=== PATIENT | female | born 1945 | race Caucasian/White ===

== ENCOUNTER 2017-10-24 15:57 | Emergency (ER) | payer MEDICARE, OTHER ==
[~2017-10-24 15:57] MED LIST: ADLT ASA LOW81 MG OR; ALLOPURINOL300 MG PO; AMARYL2 MG PO; AMLODIPINE10 MG PO; AMOXICILLIN875 MG PO; ASPIRIN ADULT L81 M1 PO; ASPIRIN325 MG PO; AUGMENTIN875TAB OR; BACITRACIN EX; BENZONATATE200 MG PO; CELEXA20 M1 PO; CHANTIX STARTIN0.5 & PO; CIPRO500 MG PO; CIPROFLOXACN500 MG PO; CLARITIN10 M1 PO; DIFLUCAN150 MG OR; DOXYCYCL HYC100 MG PO; EFFIENT10 MG PO; FLONASE NASAL50 MCG; GABAPENTIN600 MG PO; GABAPENTIN800 MG PO; HYDROCHLOROT12.5 MG PO; LISINOPRIL20 MG OR; LISINOPRIL40 MG PO; MAXZIDE OR; METFORMIN1000 MG PO; METFORMIN500 M2 PO; METFORMIN500 MG PO; METOPROLOL TART50 MG PO; METRONIDAZOL0.75 % VA; NEOMYCIN EX; NEXIUM40 M1 PO; NICODERM C14 MG/24 H TD; POLYMYXIN B EX; PREVACID30 M1 OR; TESSALON200 MG PO; UNKNOWN PAIN MED; VOSOL2 % AU; ZETIA10 MG OR; ZETIA10 MG PO; ZOCOR80 MG OR
[2017-10-24 16:40] LABS: HEMATOCRIT 42.1 % (37.0-47.0); IMMATURE GRANULOCYTES 0.2 % (0.0-1.0); MEAN CELL VOLUME 94.8 fL CALC (80.0-100.0); MEAN CORPUSCULAR HGB 31.5 pG CALC (26.0-32.0); MEAN CORPUSCULAR HGB CONC 33.3 g/L CALC (32.0-36.0); NEUT# 6.04 thou/uL (2.00-7.15); RED BLOOD COUNT 4.44 mill/uL (4.20-5.60); RED CELL DISTRI WIDTH 13.6 % (11.5-15.5)
[2017-10-24 17:05] LABS: ALBUMIN 3.7 g/dL (3.2-5.0); ALKALINE PHOSPHATASE 73 u/l (38-126); ANION GAP 14 (6-22 (CALC)); BILIRUBIN, TOTAL 0.7 mg/dL (0.0-1.4); BUN 14 mg/dL (8-23); BUN/CREATININE RATIO 16 (12-20 (CALC)); CARBON DIOXIDE 27 mmol/l (22-30); CHLORIDE 99 mmol/l (95-108); CREATININE 0.9 mg/dL (0.5-1.0); GFR > 60 ML/MIN (>=60 (CALC)); GFR FOR AFR.AMER. > 60 ML/MIN (>=60 (CALC)); POTASSIUM 4.4 mmol/l (3.5-5.1); SGOT/AST 20 u/l (9-36); SGPT/ALT 31 u/l (11-66); SODIUM 137 mmol/l (137-146); TOTAL PROTEIN 6.6 g/dL (6.3-8.2)
[2017-10-24 17:09] LABS: URINE BILIRUBIN - DIPSTICK NEGATIVE (NEGATIVE); URINE BLOOD DIPSTICK NEGATIVE (NEGATIVE); URINE COLOR YELLOW; URINE GLUCOSE - DIPSTICK NEGATIVE (NEGATIVE); URINE KETONE NEGATIVE (NEGATIVE); URINE LEUK ESTERASE NEGATIVE (NEGATIVE); URINE NITRITE - DIPSTICK NEGATIVE (Negative); URINE PH 6.5 (4.5-8.0); URINE PROTEIN - DIPSTICK NEGATIVE (NEG-TRACE); URINE SPECIFIC GRAVITY <=1.005; URINE UROBILINOGEN - DIPSTICK 0.2 E.U./dL (0.2)
[2017-10-24 17:10] LABS: URINE CLARITY CLEAR
[2017-10-24 17:29] VITALS: BP 148/64
== END 2017-10-24 17:35 | disposition home or self-care (01) ==
LOC: ED 15:57
PROVIDERS: Emergency Medicine
DX: R20.2 Paresthesia of skin (principal); F17.210 Nicotine dependence, cigarettes, uncomplicated; Z95.5 Presence of coronary angioplasty implant and graft; Z89.511 Acquired absence of right leg below knee

== ENCOUNTER 2017-10-29 09:54 | Emergency (ER) | payer MEDICARE, OTHER ==
[~2017-10-29] VITALS: Ht 162.6 cm; Wt 98.0 kg
[2017-10-29 10:55] LABS: HEMATOCRIT 41.9 % (37.0-47.0); IMMATURE GRANULOCYTES 0.5 % (0.0-1.0); MEAN CELL VOLUME 94.8 fL CALC (80.0-100.0); MEAN CORPUSCULAR HGB 31.7 pG CALC (26.0-32.0); MEAN CORPUSCULAR HGB CONC 33.4 g/L CALC (32.0-36.0); NEUT# 5.87 thou/uL (2.00-7.15); RED BLOOD COUNT 4.42 mill/uL (4.20-5.60); RED CELL DISTRI WIDTH 13.8 % (11.5-15.5)
[2017-10-29 11:00] LABS: ALBUMIN 3.8 g/dL (3.2-5.0); ALKALINE PHOSPHATASE 78 u/l (38-126); ANION GAP 17 (6-22 (CALC)); BILIRUBIN, TOTAL 0.5 mg/dL (0.0-1.4); BUN 18 mg/dL (8-23); BUN/CREATININE RATIO 20 (12-20 (CALC)); CARBON DIOXIDE 24 mmol/l (22-30); CHLORIDE 99 mmol/l (95-108); CREATININE 0.9 mg/dL (0.5-1.0); GFR > 60 ML/MIN (>=60 (CALC)); GFR FOR AFR.AMER. > 60 ML/MIN (>=60 (CALC)); POTASSIUM 4.5 mmol/l (3.5-5.1); SGOT/AST 20 u/l (9-36); SGPT/ALT 35 u/l (11-66); SODIUM 136 mmol/l (137-146); TOTAL PROTEIN 6.7 g/dL (6.3-8.2)
[2017-10-29 12:23] LABS: URINE BILIRUBIN - DIPSTICK NEGATIVE (NEGATIVE); URINE BLOOD DIPSTICK NEGATIVE (NEGATIVE); URINE COLOR YELLOW; URINE GLUCOSE - DIPSTICK NEGATIVE (NEGATIVE); URINE KETONE NEGATIVE (NEGATIVE); URINE LEUK ESTERASE NEGATIVE (NEGATIVE); URINE NITRITE - DIPSTICK NEGATIVE (Negative); URINE PROTEIN - DIPSTICK NEGATIVE (NEG-TRACE); URINE SPECIFIC GRAVITY <=1.005; URINE UROBILINOGEN - DIPSTICK 0.2 E.U./dL (0.2)
[2017-10-29 12:36] LABS: URINE CLARITY CLEAR
[2017-10-29] MEDS ORDERED: FIORICET PO (12:50)
[2017-10-29 13:29] VITALS: BP 117/56
== END 2017-10-29 13:29 | disposition home or self-care (01) ==
LOC: ED 09:54
PROVIDERS: Family Medicine
DX: I16.0 Hypertensive urgency (principal); G44.009 Cluster headache syndrome, unspecified, not intractable; E11.65 Type 2 diabetes mellitus with hyperglycemia; R94.6 Abnormal results of thyroid function studies; Z89.511 Acquired absence of right leg below knee; I73.9 Peripheral vascular disease, unspecified

== ENCOUNTER 2018-12-20 11:27 | Observation (INO) | payer MEDICARE, OTHER ==
[~2018-12-20] VITALS: Ht 162.6 cm; Wt 91.0 kg
[~2018-12-20 11:27] MED LIST changes: +FIORICET PO
--- NOTE | 2018-12-20 11:32 | NUR ---
PT IMMEDIATELY TO [facility]IA W/C FOR BEDSIDE TRIAGE. FRIEND AT B/S.
[2018-12-20 11:52] LABS: HEMATOCRIT 46.5 % (37.0-47.0); HEMOGLOBIN 15.7 g/dl (12.0-16.0); IMMATURE GRANULOCYTES 0.4 % (0.0-5.0); MEAN CELL VOLUME 91.2 fL CALC (80.0-100.0); MEAN CORPUSCULAR HGB 30.8 pG CALC (26.0-32.0); MEAN CORPUSCULAR HGB CONC 33.8 g/L CALC (32.0-36.0); NEUT# 7.68 thou/uL (2.00-7.15); RED BLOOD COUNT 5.1 mill/uL (4.20-5.60); RED CELL DISTRI WIDTH 13.3 % (11.5-15.5)
[2018-12-20 12:02] LABS: ANION GAP 17 (6-22 (CALC)); BUN 20 mg/dL (8-23); BUN/CREATININE RATIO 21 (12-20 (CALC)); CARBON DIOXIDE 25 mmol/l (22-30); CHLORIDE 94 mmol/l (95-108); CREATININE 0.9 mg/dL (0.5-1.0); GFR > 60 ML/MIN (>=60 (CALC)); GFR FOR AFR.AMER. > 60 ML/MIN (>=60 (CALC)); POTASSIUM 4.3 mmol/l (3.5-5.1); SODIUM 131 mmol/l (137-146)
--- NOTE | 2018-12-20 12:09 | NUR ---
PATIENT REPORTS TAKING ONE 81 MG THIS MORNING BEFORE ARRIVING TO ED. REPORTS CHEST ACHE X3 DAYS WITH NO SHORTNESS OF BREATH. PATIENT ALERT AND ORIENTED X4, SR 63 ON TRACTOR TRAILER OPERATOR. CALL LIGHT GIVEN, WILL CONTINUE TO MONITOR.
[2018-12-20] MEDS ORDERED: GLIMEPIRIDE2 MG PO (12:22)
[2018-12-20] MEDS ORDERED: ATORVASTATIN CA40 MG PO (12:23)
[2018-12-20] MEDS ORDERED: NEXIUM40 M1 PO (12:25)
--- NOTE | 2018-12-20 13:00 | NUR ---
PATIENT RESTING ON STRETCHER NO SIGN OF DISTRESS NOTED, FAMILY AT BEDSIDE.
--- NOTE | 2018-12-20 13:48 | NUR ---
AT BEDSIDE TO DISCUSS RESULTS.
--- NOTE | 2018-12-20 13:53 | NUR ---
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
--- NOTE | 2018-12-20 14:47 | NUR ---
PATIENT ASSISTED TO [facility], REPORTS CHEST ACHE 07/21, DENIES HEADACHE.
--- NOTE | 2018-12-20 15:10 | NUR ---
PATIENT INFORMED OF PLAN OF CARE AND UPDATED WAIT TIME, VERBAL UNDERSTANDING.
--- NOTE | 2018-12-20 15:54 | NUR ---
ATTEMPT MADE TO CALL REPORT, SPOKE TO JOSE. UNABLE TO GIVEN REPORT AT THIS TIME. WILL CALL BACK.
--- NOTE | 2018-12-20 16:17 | NUR ---
SECOND ATTEMPT MADE TO CALL REPORT, SPOKE TO NICKO LU. STATES WILL CALL BACK FOR REPORT.
--- NOTE | 2018-12-20 16:33 | NUR ---
ATTEMPT TO CALL REPORT, SPOKE TO JOSE. WILL HAVE NURSE CALL BACK.
--- NOTE | 2018-12-20 16:39 | NUR ---
REPORT CALLED TO NICKO LU.
--- NOTE | 2018-12-20 16:40 | NUR ---
PATIENT TRANSPORTED TO [facility] WITH TELE IN PLACE VIA [employer]. CELL PHONE, PURSE, RIGHT LOWER EXTREMITY PROSTHETIC TO [facility] WITH PATIENT. [facility] STAFF OF PATIENT'S ARRIVAL TO FLOOR. CARE RELINQUISHED.
[2018-12-20 19:14] VITALS: BP 103/49
--- NOTE | 2018-12-20 20:00 | NUR ---
ASSESSMENT IS COMPLETED: IV SITE IS FREE FROM REDNESS OR EDEMA. HR IS REG,PULSES ARE STRONG ON RADIAL AND LEFT PEDAL, ABSENT FROM R PEDAL, HAS A STUMP. BREATH SOUNDS ARE CLEAR,BILATERALLY. NO C/O CP WAS ONLY MIDSTERNAL UPON ARRIVAL PER PT. ABD IS SOFT WITH ACTIVE BS., CONTINUE TO OSBERVE AND MONITOR.
--- NOTE | 2018-12-20 20:24 | NUR ---
PT'S BS WAS [address] THORNTON FOR FURTHER ORDERS
--- NOTE | 2018-12-20 21:23 | NUR ---
PT C/O CRAMPS IN HER CALF OF THE LEFT LEG AND IN HER R STUMP. PT USES " A CREAM OVER THE COUNTER FOR THE CRAMPS " NOT AVAILABLE IN HOSPITAL.
--- NOTE | 2018-12-20 21:42 | NUR ---
SPOKE WITH RE: CRAMPS IN THE LEG AND STUMP. NEW ORDERS OBTAINED
[2018-12-21] VITALS (7 sets, daily range): BP systolic 123–165; BP diastolic 48–83
--- NOTE | 2018-12-21 | NUR ---
PT IS RESTLESS CONTINUING WITH CRAMPS IN HER LEGS. LAB IN TO DRAW PT. CONTINUE TO OBSERVE AND MONITOR.
--- NOTE | 2018-12-21 00:42 | NUR ---
IV SITE BECAME PUFFY BELOW THE SITE. STOPPED IV FLUIDS AND RESTARTED A NEW IV IN LFA WITH 1 ATTEMPT #22 IN LFA
--- NOTE | 2018-12-21 04:00 | NUR ---
PT IS RESTING WITHOUT ANY DIFFICULTY. IV SITE IS FREE FROM REDNESS OR EDEMA. CONTINUES TO HAVE CRAMPS OFF AND ON WITH HER LEG.
[2018-12-21 05:21] LABS: HEMATOCRIT 45.1 % (37.0-47.0); HEMOGLOBIN 15.1 g/dl (12.0-16.0); IMMATURE GRANULOCYTES 0.5 % (0.0-5.0); MEAN CELL VOLUME 91.1 fL CALC (80.0-100.0); MEAN CORPUSCULAR HGB 30.5 pG CALC (26.0-32.0); MEAN CORPUSCULAR HGB CONC 33.5 g/L CALC (32.0-36.0); NEUT# 7.28 thou/uL (2.00-7.15); RED BLOOD COUNT 4.95 mill/uL (4.20-5.60); RED CELL DISTRI WIDTH 13.6 % (11.5-15.5)
[2018-12-21 05:43] LABS: ALBUMIN 3.6 g/dL (3.2-5.0); ALKALINE PHOSPHATASE 87 u/l (38-126); ANION GAP 13 (6-22 (CALC)); BILIRUBIN, TOTAL 0.9 mg/dL (0.0-1.4); BUN 16 mg/dL (8-23); BUN/CREATININE RATIO 18 (12-20 (CALC)); CARBON DIOXIDE 26 mmol/l (22-30); CHLORIDE 97 mmol/l (95-108); CREATININE 0.9 mg/dL (0.5-1.0); GFR > 60 ML/MIN (>=60 (CALC)); GFR FOR AFR.AMER. > 60 ML/MIN (>=60 (CALC)); MAGNESIUM 1.4 mg/dL (1.6-2.3); POTASSIUM 3.7 mmol/l (3.5-5.1); SGOT/AST 17 u/l (9-36); SODIUM 133 mmol/l (137-146); TOTAL PROTEIN 6.2 g/dL (6.3-8.2)
--- NOTE | 2018-12-21 07:00 | NUR ---
SHIFT CHANGE REPORT, PT AWAKE ALERT AND ORIENTED, INQUIRING ABOUT HER AM MEDS, ADVISED MD WILL BE HERE LATER TO ASSESS AND WRITE ORDERS, ALL OTHER NEEDS ADDRESSED, CALL YOUNG IN REACH.
[2018-12-21] MEDS ORDERED: METOPROL TAR25 M1 PO (10:46)
--- NOTE | 2018-12-21 12:25 | NUR ---
PT JUST WHEELED SELF FROM ROOM TO [address] DOOR AND C/O OF CHEST P0AIN. VITAL SIGNS MEASURED= 100.2,101,20,165.51, 97% ON R/A. DR THORNTON NOTIFIED, SAID HE WILL HOLD D/C AND WILL ASSES. PT STATED SHE WANTS TO GO HOME.
--- NOTE | 2018-12-21 15:32 | NUR ---
ADVISED PT OF PLAN TO KEEP HERE OVERNIGHT FOR FURTHER OBSERVATION AND PROCEDURES BASED ON HER C/O OF CP EARLIER, PT ADAMANT TO GO HOME STATING SHE WILL GO TO HER DOCTORS IN [place], ADVISED OF [id number] UNDESIRABLE OUTCOMES OF LEAVING AMA, SHE STATED UNDERSTANDING AND STILL WANTS TO LEAVE, WILL CONTINUE TO MONITOR.
--- NOTE | 2018-12-21 16:00 | NUR ---
PT ADAMANT ABOUT LEAVING AMA, DR KNOTT (MECHANICAL DESIGN TECHNICIAN) NOTIFIED.
--- NOTE | 2018-12-21 17:35 | NUR ---
Patient decides to leave AMA. Multiple attempts made to ecourage patient to remain here for continued treatment. Explained to patient all risks of leaving against medical advice including . Pt verbalized understanding of all risks. Pt also encouraged to return to [facility] at any time, especially if symptoms continue or become worse. Pt verbalized understanding.
== END 2018-12-21 16:05 | disposition left against medical advice (07) ==
LOC: ED 11:27 → ED-I 14:50 → ED 15:03 → MS2 15:04
PROVIDERS: Family Medicine; ADMIT Internal Medicine Nephrology; ATTEND Internal Medicine Nephrology
DX: I25.119 Atherosclerotic heart disease of native coronary artery with unspecified angina pectoris (principal); I10 Essential (primary) hypertension; E11.51 Type 2 diabetes mellitus with diabetic peripheral angiopathy without gangrene; F17.200 Nicotine dependence, unspecified, uncomplicated; E78.5 Hyperlipidemia, unspecified; E66.9 Obesity, unspecified; I25.2 Old myocardial infarction; Z68.34 Body mass index [BMI] 34.0-34.9, adult; Z79.84 Long term (current) use of oral hypoglycemic drugs; Z89.511 Acquired absence of right leg below knee; Z95.5 Presence of coronary angioplasty implant and graft
CPT/HCPCS: J1650

== ENCOUNTER 2018-12-26 10:29 | Inpatient (IN) | payer MEDICARE, OTHER ==
[~2018-12-26] VITALS: Ht 162.6 cm; Wt 96.7 kg
[2018-12-26] VITALS (16 sets, daily range): BP systolic 65–137; BP diastolic 33–64
[~2018-12-26 10:29] MED LIST changes: +ATORVASTATIN CA40 MG PO; +GLIMEPIRIDE2 MG PO; +METOPROL TAR25 M1 PO
[2018-12-26 11:47] LABS: HEMATOCRIT 40.7 % (37.0-47.0); HEMOGLOBIN 13.9 g/dl (12.0-16.0); IMMATURE GRANULOCYTES 2.9 % (0.0-5.0); MEAN CELL VOLUME 88.9 fL CALC (80.0-100.0); MEAN CORPUSCULAR HGB 30.3 pG CALC (26.0-32.0); MEAN CORPUSCULAR HGB CONC 34.2 g/L CALC (32.0-36.0); NEUT# 15.75 thou/uL (2.00-7.15); RED BLOOD COUNT 4.58 mill/uL (4.20-5.60); RED CELL DISTRI WIDTH 13.3 % (11.5-15.5)
[2018-12-26 12:38] LABS: ALBUMIN 3.2 g/dL (3.2-5.0); BILIRUBIN, TOTAL 0.9 mg/dL (0.0-1.4); POTASSIUM 3.8 mmol/l (3.5-5.1); TOTAL PROTEIN 6.1 g/dL (6.3-8.2)
[2018-12-26 12:40] LABS: CREATININE 2.5 mg/dL (0.5-1.0)
[2018-12-26 21:17] LABS: HEMATOCRIT 36.6 % (37.0-47.0); HEMOGLOBIN 12.4 g/dl (12.0-16.0)
[2018-12-27] VITALS (38 sets, daily range): BP systolic 56–136; BP diastolic 41–81
[2018-12-27 05:19] LABS: HEMATOCRIT 37.9 % (37.0-47.0); HEMOGLOBIN 12.7 g/dl (12.0-16.0); IMMATURE GRANULOCYTES 1.7 % (0.0-5.0); MEAN CELL VOLUME 92.9 fL CALC (80.0-100.0); MEAN CORPUSCULAR HGB 31.1 pG CALC (26.0-32.0); MEAN CORPUSCULAR HGB CONC 33.5 g/L CALC (32.0-36.0); RED BLOOD COUNT 4.08 mill/uL (4.20-5.60); RED CELL DISTRI WIDTH 13.9 % (11.5-15.5)
[2018-12-27 05:48] LABS: CREATININE 1.8 mg/dL (0.5-1.0); POTASSIUM 3.7 mmol/l (3.5-5.1)
[2018-12-27 06:09] LABS: ALBUMIN 2.5 g/dL (3.2-5.0)
[2018-12-27 06:18] LABS: BAND 2 % (0-8); IMMATURE CELLS 2 %; MANUAL DIFFERENTIAL YES
[2018-12-27 06:19] LABS: PLATELET ESTIMATE NORMAL
[2018-12-27 06:52] LABS: PLATELET COUNT 256 thou/uL (130-400)
== END 2018-12-27 16:30 | DRG 463 ==
LOC: ED 10:29 → ED-I 13:28 → ED 13:59 → ICU 14:00
PROVIDERS: Emergency Medicine; Internal Medicine; ADMIT Internal Medicine; ATTEND Internal Medicine
PROC: 0U9M0ZZ Drainage of Vulva, Open Approach (ICD-10-PCS; principal; 2018-12-26)
PROC: 0JBB0ZZ Excision of Perineum Subcutaneous Tissue and Fascia, Open Approach (ICD-10-PCS; 2018-12-26)
PROC: 0JBB0ZZ Excision of Perineum Subcutaneous Tissue and Fascia, Open Approach (ICD-10-PCS; 2018-12-27)
DX: M72.6 Necrotizing fasciitis (principal); A41.9 Sepsis, unspecified organism; R65.21 Severe sepsis with septic shock; N76.4 Abscess of vulva; N17.9 Acute kidney failure, unspecified; E87.1 Hypo-osmolality and hyponatremia; E86.0 Dehydration; I95.9 Hypotension, unspecified; I10 Essential (primary) hypertension; E11.51 Type 2 diabetes mellitus with diabetic peripheral angiopathy without gangrene; J44.9 Chronic obstructive pulmonary disease, unspecified; E78.5 Hyperlipidemia, unspecified; I71.4 Abdominal aortic aneurysm, without rupture; I25.119 Atherosclerotic heart disease of native coronary artery with unspecified angina pectoris; F17.200 Nicotine dependence, unspecified, uncomplicated; I25.2 Old myocardial infarction; Z79.02 Long term (current) use of antithrombotics/antiplatelets; Z89.511 Acquired absence of right leg below knee; Z95.5 Presence of coronary angioplasty implant and graft; Z79.84 Long term (current) use of oral hypoglycemic drugs
CPT/HCPCS: J3370; Q9967

== ENCOUNTER 2021-12-05 21:44 | Observation (INO) | payer MEDICARE, OTHER ==
[~2021-12-05] VITALS: Ht 162.6 cm; Wt 82.0 kg
[2021-12-05 22:38] LABS: IMMATURE GRANULOCYTES 0.4 % (0.0-5.0); MEAN CORPUSCULAR HGB CONC 32.2 g/dL CAL (32.0-36.0); NEUT# 11.83 thou/uL (2.00-7.15); RED BLOOD COUNT 3.85 mill/uL (4.20-5.60); RED CELL DISTRI WIDTH 16.3 % (11.5-15.5)
[2021-12-05 22:39] LABS: HEMATOCRIT 31.1 % (37.0-47.0); MEAN CELL VOLUME 80.8 fL CALC (80.0-100.0)
[2021-12-05 22:57] LABS: ALBUMIN 2.8 g/dL (3.2-5.0); ALKALINE PHOSPHATASE 105 u/l (38-126); ANION GAP 9 (6-22 (CALC)); BILIRUBIN, TOTAL 0.6 mg/dL (0.0-1.4); BUN 12 mg/dL (8-23); BUN/CREATININE RATIO 12 (12-20 (CALC)); CARBON DIOXIDE 25 mmol/l (22-30); CHLORIDE 92 mmol/l (95-108); GFR FOR AFR.AMER. > 60 ML/MIN (>=60 (CALC)); GFR OTHER RACES 54 ML/MIN (>=60 (CALC)); LIPASE 40 u/l (23-300); POTASSIUM 3.7 mmol/l (3.5-5.1); SGOT/AST 21 u/l (9-36); TOTAL PROTEIN 6.2 g/dL (6.3-8.2)
[2021-12-05 22:58] LABS: SODIUM 122 mmol/l (137-146)
[2021-12-05 23:09] LABS: MYOGLOBIN 75 ng/mL (0 - 62)
[2021-12-06] VITALS: BP 106/50
[2021-12-06 00:54] LABS: URINE BILIRUBIN - DIPSTICK NEGATIVE (NEGATIVE); URINE BLOOD DIPSTICK TRACE-INTACT (NEGATIVE); URINE COLOR YELLOW; URINE GLUCOSE - DIPSTICK NEGATIVE (NEGATIVE); URINE KETONE NEGATIVE (NEGATIVE); URINE LEUK ESTERASE NEGATIVE (NEGATIVE); URINE PROTEIN - DIPSTICK NEGATIVE (NEG-TRACE); URINE SPECIFIC GRAVITY <=1.005; URINE UROBILINOGEN - DIPSTICK 0.2 E.U./dL (0.2)
[2021-12-06 01:00] VITALS: BP 115/58
[2021-12-06 01:00] LABS: URINE NITRITE - DIPSTICK NEGATIVE (Negative)
[2021-12-06] MEDS ORDERED: ISOSORB MONO30 MG PO (03:01)
[2021-12-06] MEDS ORDERED: HYDROCHLOROT25 MG PO (03:01)
[2021-12-06] MEDS ORDERED: JARDIANCE25 MG PO (03:02)
[2021-12-06 04:10] VITALS: BP 122/49
[2021-12-06 06:46] VITALS: BP 143/64
[2021-12-06 10:19] VITALS: BP 134/49
[2021-12-06 10:56] LABS: HEMATOCRIT 30.4 % (37.0-47.0); HEMOGLOBIN 9.9 g/dl (12.0-16.0); IMMATURE GRANULOCYTES 0.3 % (0.0-5.0); MEAN CELL VOLUME 81.1 fL CALC (80.0-100.0); MEAN CORPUSCULAR HGB 26.4 pG CALC (26.0-32.0); MEAN CORPUSCULAR HGB CONC 32.6 g/dL CAL (32.0-36.0); NEUT# 8.63 thou/uL (2.00-7.15); RED BLOOD COUNT 3.75 mill/uL (4.20-5.60); RED CELL DISTRI WIDTH 16.6 % (11.5-15.5)
[2021-12-06 11:15] LABS: ALBUMIN 2.4 g/dL (3.2-5.0); ALKALINE PHOSPHATASE 100 u/l (38-126); ANION GAP 11 (6-22 (CALC)); BILIRUBIN, TOTAL 0.5 mg/dL (0.0-1.4); BUN 11 mg/dL (8-23); BUN/CREATININE RATIO 12 (12-20 (CALC)); CARBON DIOXIDE 25 mmol/l (22-30); CHLORIDE 95 mmol/l (95-108); CREATININE 0.9 mg/dL (0.5-1.0); GFR FOR AFR.AMER. > 60 ML/MIN (>=60 (CALC)); GFR OTHER RACES > 60 ML/MIN (>=60 (CALC)); POTASSIUM 3.8 mmol/l (3.5-5.1); SGOT/AST 20 u/l (9-36); SODIUM 126 mmol/l (137-146); TOTAL PROTEIN 5.5 g/dL (6.3-8.2)
[2021-12-06] MEDS ORDERED: AMOX/K CLAV875 M1 PO (12:08)
== END 2021-12-06 12:37 | disposition home health service (06) ==
LOC: ED 21:44 → ED-I 12-06 03:00 → ED 12-06 03:18 → MS2 12-06 03:19
PROVIDERS: Emergency Medicine; ADMIT Hospitalist; ATTEND Hospitalist
DX: R53.1 Weakness (principal); E87.1 Hypo-osmolality and hyponatremia; D72.829 Elevated white blood cell count, unspecified; R50.9 Fever, unspecified; I10 Essential (primary) hypertension; E11.51 Type 2 diabetes mellitus with diabetic peripheral angiopathy without gangrene; I25.10 Atherosclerotic heart disease of native coronary artery without angina pectoris; E78.5 Hyperlipidemia, unspecified; M10.9 Gout, unspecified; I25.2 Old myocardial infarction; F17.200 Nicotine dependence, unspecified, uncomplicated; Z95.820 Peripheral vascular angioplasty status with implants and grafts; Z89.511 Acquired absence of right leg below knee; Z95.5 Presence of coronary angioplasty implant and graft; Z79.84 Long term (current) use of oral hypoglycemic drugs; Z20.822 Contact with and (suspected) exposure to COVID-19

== ENCOUNTER 2021-12-08 14:57 | Emergency (ER) | payer MEDICARE, OTHER ==
[2021-12-08] VITALS (12 sets, daily range): BP systolic 125–156; BP diastolic 51–70
[~2021-12-08] VITALS: Ht 162.6 cm; Wt 83.0 kg
[~2021-12-08 14:57] MED LIST changes: +AMOX/K CLAV875 M1 PO; +HYDROCHLOROT25 MG PO; +ISOSORB MONO30 MG PO; +JARDIANCE25 MG PO
[2021-12-08 16:43] LABS: IMMATURE GRANULOCYTES 0.5 % (0.0-5.0); MEAN CELL VOLUME 82.4 fL CALC (80.0-100.0); MEAN CORPUSCULAR HGB 25.8 pG CALC (26.0-32.0); MEAN CORPUSCULAR HGB CONC 31.3 g/dL CAL (32.0-36.0); NEUT# 8.14 thou/uL (2.00-7.15); RED BLOOD COUNT 5.39 mill/uL (4.20-5.60)
[2021-12-08 16:46] LABS: HEMATOCRIT 44.4 % (37.0-47.0); HEMOGLOBIN 13.9 g/dl (12.0-16.0)
[2021-12-08 16:53] LABS: ALKALINE PHOSPHATASE 111 u/l (38-126); ANION GAP 13 (6-22 (CALC)); BILIRUBIN, TOTAL 0.5 mg/dL (0.0-1.4); BUN 11 mg/dL (8-23); BUN/CREATININE RATIO 12 (12-20 (CALC)); CARBON DIOXIDE 23 mmol/l (22-30); CHLORIDE 93 mmol/l (95-108); CREATININE 0.9 mg/dL (0.5-1.0); GFR FOR AFR.AMER. > 60 ML/MIN (>=60 (CALC)); GFR OTHER RACES > 60 ML/MIN (>=60 (CALC)); POTASSIUM 3.8 mmol/l (3.5-5.1); SGOT/AST 24 u/l (9-36); SODIUM 125 mmol/l (137-146); TOTAL PROTEIN 6.4 g/dL (6.3-8.2)
[2021-12-08 17:34] LABS: URINE BILIRUBIN - DIPSTICK NEGATIVE (NEGATIVE); URINE BLOOD DIPSTICK NEGATIVE (NEGATIVE); URINE COLOR YELLOW; URINE GLUCOSE - DIPSTICK NEGATIVE (NEGATIVE); URINE KETONE NEGATIVE (NEGATIVE); URINE LEUK ESTERASE NEGATIVE (NEGATIVE); URINE PROTEIN - DIPSTICK NEGATIVE (NEG-TRACE); URINE SPECIFIC GRAVITY 1.025; URINE UROBILINOGEN - DIPSTICK 0.2 E.U./dL (0.2)
[2021-12-08 17:36] LABS: URINE NITRITE - DIPSTICK NEGATIVE (Negative)
[2021-12-08] MEDS ORDERED: LANTUS SOL100 UNIT/M SC (18:56)
== END 2021-12-08 20:10 | disposition left against medical advice (07) ==
LOC: ED 14:57 → ED-I 18:00 → ED 20:10
PROVIDERS: Family Medicine
DX: R78.81 Bacteremia (principal); I10 Essential (primary) hypertension; E11.9 Type 2 diabetes mellitus without complications; F17.200 Nicotine dependence, unspecified, uncomplicated; Z89.511 Acquired absence of right leg below knee; Z91.19 Patient's noncompliance with other medical treatment and regimen

== ENCOUNTER 2022-01-28 14:41 | Emergency (ER) | payer MEDICARE, OTHER ==
[~2022-01-28] VITALS: Ht 162.6 cm; Wt 81.8 kg
[~2022-01-28 14:41] MED LIST changes: +LANTUS SOL100 UNIT/M SC
[2022-01-28 14:54] VITALS: BP 126/54
[2022-01-28 15:00] VITALS: BP 143/72
[2022-01-28 15:15] VITALS: BP 136/73
[2022-01-28 15:19] LABS: IMMATURE GRANULOCYTES 0.2 % (0.0-5.0); MEAN CORPUSCULAR HGB 28.3 pG CALC (26.0-32.0); MEAN CORPUSCULAR HGB CONC 31.4 g/dL CAL (32.0-36.0); NEUT# 11.34 thou/uL (2.00-7.15); RED BLOOD COUNT 3.85 mill/uL (4.20-5.60); RED CELL DISTRI WIDTH 16.4 % (11.5-15.5)
[2022-01-28 15:21] LABS: HEMATOCRIT 34.7 % (37.0-47.0); HEMOGLOBIN 10.9 g/dl (12.0-16.0); MEAN CELL VOLUME 90.1 fL CALC (80.0-100.0)
[2022-01-28 15:38] LABS: ANION GAP 10 (6-22 (CALC)); BUN 20 mg/dL (8-23); BUN/CREATININE RATIO 20 (12-20 (CALC)); CARBON DIOXIDE 26 mmol/l (22-30); CHLORIDE 96 mmol/l (95-108); GFR FOR AFR.AMER. > 60 ML/MIN (>=60 (CALC)); GFR OTHER RACES 54 ML/MIN (>=60 (CALC)); POTASSIUM 3.5 mmol/l (3.5-5.1); SODIUM 129 mmol/l (137-146)
[2022-01-28 17:15] VITALS: BP 130/66
[2022-01-28 17:31] VITALS: BP 110/76
[2022-01-28 17:46] VITALS: BP 110/76
== END 2022-01-28 17:59 | disposition home or self-care (01) ==
LOC: ED 14:41
PROVIDERS: Family Medicine
DX: L03.116 Cellulitis of left lower limb (principal); I70.202 Unspecified atherosclerosis of native arteries of extremities, left leg; I10 Essential (primary) hypertension; E11.9 Type 2 diabetes mellitus without complications; F17.200 Nicotine dependence, unspecified, uncomplicated; Z79.4 Long term (current) use of insulin; Z95.1 Presence of aortocoronary bypass graft; M79.662 Pain in left lower leg; M79.89 Other specified soft tissue disorders

== ENCOUNTER 2022-03-03 18:12 | Emergency (ER) | payer MEDICARE, OTHER ==
[~2022-03-03] VITALS: Ht 162.6 cm; Wt 81.8 kg
[2022-03-03 18:31] VITALS: BP 99/46
[2022-03-03 19:01] VITALS: BP 94/45
[2022-03-03 19:31] VITALS: BP 93/52
[2022-03-03 19:51] LABS: HEMATOCRIT 35.5 % (37.0-47.0); HEMOGLOBIN 11.2 g/dl (12.0-16.0); IMMATURE GRANULOCYTES 0.4 % (0.0-5.0); MEAN CELL VOLUME 84.9 fL CALC (80.0-100.0); MEAN CORPUSCULAR HGB 26.8 pG CALC (26.0-32.0); MEAN CORPUSCULAR HGB CONC 31.5 g/dL CAL (32.0-36.0); NEUT# 14.76 thou/uL (2.00-7.15); RED BLOOD COUNT 4.18 mill/uL (4.20-5.60); RED CELL DISTRI WIDTH 15.6 % (11.5-15.5)
[2022-03-03 20:04] LABS: ALBUMIN 2.8 g/dL (3.2-5.0); ALKALINE PHOSPHATASE 97 u/l (38-126); ANION GAP 11 (6-22 (CALC)); BILIRUBIN, TOTAL 0.5 mg/dL (0.0-1.4); BUN 14 mg/dL (8-23); BUN/CREATININE RATIO 14 (12-20 (CALC)); CARBON DIOXIDE 29 mmol/l (22-30); CHLORIDE 99 mmol/l (95-108); GFR FOR AFR.AMER. > 60 ML/MIN (>=60 (CALC)); GFR OTHER RACES 54 ML/MIN (>=60 (CALC)); POTASSIUM 2.9 mmol/l (3.5-5.1); SGOT/AST 25 u/l (9-36); TOTAL PROTEIN 6.1 g/dL (6.3-8.2)
[2022-03-03 20:11] LABS: SODIUM 136 mmol/l (137-146)
[2022-03-03 22:57] LABS: URINE BILIRUBIN - DIPSTICK NEGATIVE (NEGATIVE); URINE BLOOD DIPSTICK NEGATIVE (NEGATIVE); URINE COLOR YELLOW; URINE GLUCOSE - DIPSTICK NEGATIVE (NEGATIVE); URINE KETONE TRACE mg/dL (NEGATIVE); URINE LEUK ESTERASE NEGATIVE (NEGATIVE); URINE PH 5.5 (4.5-8.0); URINE PROTEIN - DIPSTICK NEGATIVE (NEG-TRACE); URINE SPECIFIC GRAVITY 1.025; URINE UROBILINOGEN - DIPSTICK 0.2 E.U./dL (0.2)
[2022-03-03 23:00] LABS: URINE NITRITE - DIPSTICK NEGATIVE (Negative)
[2022-03-03] MEDS ORDERED: POTASSIUM CHLO20 ME1 PO (23:10)
[2022-03-03 23:19] VITALS: BP 93/52
--- NOTE | 2022-03-06 09:40 | NUR ---
PRELIMINARY BLOOD CULTURES SHOW GRAM POSITIVE COCCI IN 2 OF 4 VIALS, SAME SET. RESULTS REPROTED TO DR SMITH, AND I RECOMMENDED TO HAVE PT RETURN TO ED. WHILE IN ED, PT BP WAS 93/52, WBC 15.9, T 99.4, LA 2.6, HR 91, AND PT HAS LLE WOUND BEING FOLLOWED BY ID, CURRENTLY ON DOXYCYCLINE. I CALLED AND SPOKE WITH PT AND EXPLAINED RESULTS AND NEED TO RETURN TO ED. PT TOLD ME SHE RECENTLY HAD A CULTURE DONE ON HER LEG WHICH DID SHOW BACTERIA. I EXPLAINED THAT IT MAY HAVE SPREAD TO HER BLOOD AND COULD BE SERIOUS. PT THEN TOLD ME SHE JUST RECENTLY HAD OPEN HEART SURGERY WELL. PT WAS AGREEABLE AND WILL BE RETURNING TO ED.
== END 2022-03-03 23:25 | disposition home or self-care (01) ==
LOC: ED 18:12
PROVIDERS: Nurse Practitioner
DX: L03.116 Cellulitis of left lower limb (principal); E87.6 Hypokalemia; I10 Essential (primary) hypertension; E11.9 Type 2 diabetes mellitus without complications; F17.200 Nicotine dependence, unspecified, uncomplicated; Z95.1 Presence of aortocoronary bypass graft; Z89.511 Acquired absence of right leg below knee; Z79.4 Long term (current) use of insulin; Z20.822 Contact with and (suspected) exposure to COVID-19